=== PATIENT | female | born 2000 | race Hispanic/Latino ===

== ENCOUNTER 2025-05-18 20:24 | Emergency (ER) | payer SELFPAY ==
[2025-05-18] MEDS ORDERED: Ibuprofen 200 MG TAB ONE (21:00)
[2025-05-18] MEDS ORDERED: HYDROcodone/Acetaminophen 5/325 mg Tablet ONE (21:00)
== END 2025-05-18 21:26 | disposition home or self-care (01) ==
LOC: CSHERS 20:24
DX: S00.531A Contusion of lip, initial encounter (principal); M26.34 Vertical displacement of fully erupted tooth or teeth; W50.0XXA Accidental hit or strike by another person, initial encounter
CPT/HCPCS: 99282